=== PATIENT | female | born 1975 | race Caucasian/White ===

== ENCOUNTER 2022-10-31 20:32 | Outpatient (REF) | payer OTHER, SELFPAY ==
[2022-11-06 10:07] LABS: Age Gdln ACOG Testing Note (.); HPV Aptima Negative (Negative); IGP, Aptima HPV, rfx 16/18,45 Note (.)
== END 2022-10-31 20:33 | disposition home or self-care (01) ==
LOC: LAB 20:32
PROVIDERS: Visit Provider Physician Assistant
DX: Z01.419 Encounter for gynecological examination (general) (routine) without abnormal findings (principal)
CPT/HCPCS: 87624; G0145

== ENCOUNTER 2025-03-04 20:22 | Outpatient (REF) | payer BC, SELFPAY ==
--- OUTSIDE RECORDS SUMMARY | 2025-03-04 09:00 | XMS_ITS | Encounter Summary ---
Author Organization [facility] Address [address] [place] [address] Care Team Providers Care Bailer Operators Supervisor Name Role Phone Mj Valles MD Primary Care Provider [phone] Reason for Visit * ReasonCommentsWell Women Visit Encounter Details DateTypeDepartmentCare Team (Latest Contact Info)Bgneauzxzsw33/17/2025 9:00 AM ESTProcedure Visit [facility] [address] [place] [address] Tierra Bull, ENRIQUE [address] [place] [address] Well woman exam with routine gynecological exam; Breast cancer screening by mammogram; Encounter for initial prescription of contraceptive pills Social History Tobacco UseTypesPacks/DayYears UsedDateSmoking Tobacco: Every DayCigarettes Alcohol UseStandard Drinks/WeekCommentsNot Currently0 (1 standard drink = 0.6 oz pure alcohol)occasionalCommentsUnknownSex and Gender InformationValue Date RecordedSex Assigned at BirthNot on fileLegal EozRzxovl65/15/2023 11:47 PM EDTGender IdentityNot on fileSexual OrientationNot on filedocumented as of this encounter Last Filed Vital Signs Vital SignReadingTime TakenCommentsBlood Rhfyjktw080/7003/04/2025 9:05 AM EST Pulse--Temperature--Respiratory Rate--Oxygen Saturation--Inhaled Oxygen Concentration--Yvezzv49.5 kg (159 lb 12.8 oz)03/04/2025 9:05 AM ESTHeight--Body Mass Index25.0308 10:23 AM EDTdocumented in this encounter Progress Notes * Tierra Bull NP - 03/04/2025 9:00 AM EST Reason for Appointment: Patient ID: Teri Oliver is a 50 y.o. female who presents for Well Women Visit Patient presents today for Annual Exam. MEDICATIONS Current Outpatient Medications Medication Instructions Slynd 4 mg, Oral, Daily ALLERGIES No Known Allergies PROBLEMS Active Ambulatory Problems Diagnosis Date Noted No Active Ambulatory Problems Resolved Ambulatory Problems Diagnosis Date Noted No Resolved Ambulatory Problems Past Medical History: Diagnosis Date BMI 23.0-23.9, adult Breast cancer screening by mammogram Well woman exam HISTORY PAST MEDICAL HISTORY SOCIAL HISTORY Past Medical History: Diagnosis Date BMI 23.0-23.9, adult Breast cancer screening by mammogram Well woman exam Social History Tobacco Use Smoking status: Every Day Types: Cigarettes Smokeless tobacco: Not on file Substance Use Topics Alcohol use: Not Currently Comment: occasional Drug use: Never FAMILY HISTORY Family History Problem Relation Name Age of Onset Hypertension Mother Mental illness Mother Diabetes Father Hypertension Father Cancer Father Diabetes Paternal Grandmother SURGICAL HISTORY Past Surgical History: Procedure Laterality Date BOWEL RESECTION large bowel CHOLECYSTECTOMY REVIEW OF SYSTEMS Review of Systems: Review of Systems Constitutional: Negative. HENT: Negative. Eyes: Negative. Respiratory: Negative. Cardiovascular: Negative. Gastrointestinal: Negative. Genitourinary: Negative. Musculoskeletal: Negative. Skin: Negative. Neurological: Negative. All other systems reviewed and are negative. Hematological: Negative. Endocrine: Negative. Allergic/Immunologic: Negative. OBJECTIVE Objective: Physical Exam Constitutional: Appearance: Normal appearance. She is well-developed. Genitourinary: Vulva normal. Breasts: Breasts are soft. Right: Normal. Left: Normal. Cardiovascular: Rate and Rhythm: Normal rate and regular rhythm. Pulmonary: Effort: Pulmonary effort is normal. Breath sounds: Normal breath sounds. Abdominal: General: Bowel sounds are normal. There is no distension. Palpations: Abdomen is soft. Tenderness: There is no abdominal tenderness. There is no guarding or rebound. Musculoskeletal: General: No swelling. Normal range of motion. Right lower leg: No edema. Left lower leg: No edema. Neurological: Mental Status: She is alert and oriented to person, place, and time. Skin: General: Skin is warm and dry. Psychiatric: Mood and Affect: Mood normal. Behavior: Behavior normal. Vitals and nursing note reviewed. Exam conducted with a strategic accounts manager present. Vitals: Estimated body mass index is 25.03 kg/m?? as calculated from the following: Height as of 10/31/22: 5' 7 . Weight as of this encounter: 159 lb 12.8 oz. BP: 108/70 Patient's last menstrual period was 2025. Assessment/Plan ICD-10-CM 1. Well woman exam with routine gynecological exam Z01.419 THIN PREP TIS PAP AND HR HPV DNA 2. Breast cancer screening by mammogram Z12.31 Bilateral screening mammogram Bilateral screening mammogram Assessment/Plan Annual Exam: Patient presents today for an annual exam. Patient states she is doing well and has no complaints. Pap was obtained without difficulty. Orders Placed This Encounter Procedures Bilateral screening mammogram Follow Up: Patient is to return in one year for annual unless needed otherwise. Documented by Tierra Bull NP on behalf of: Tierra Bull NP documented in this encounter Plan of Treatment NameTypePriorityAssociated DiagnosesOrder ScheduleBilateral screening mammogram ImagingRoutine Breast cancer screening by mammogram Expected: 03/04/2025 (Approximate), Expires: 05/05/2026THIN PREP TIS PAP AND HR HPV DNAPathology and CytologyRoutine Well woman exam with routine gynecological exam Ordered: 03/04/2025documented as of this encounter Visit Diagnoses Diagnosis Well woman exam with routine gynecological exam Routine gynecological examination Breast cancer screening by mammogram Encounter for initial prescription of contraceptive pills documented in this encounter Care Teams Team MemberRelationshipSpecialtyStart DateEnd Date Mj Valles MD [address] [place] [address] PCP - GeneralFamily Medicine10/31/22documented as of this encounter
--- OUTSIDE RECORDS SUMMARY | 2025-03-04 20:28 | XMS_ITS | Clinical Summary ---
Author Organization [facility] Address [id number] [address] [place] [address] Care Team Providers Care Rolled Seat Trimmer Name Role Phone Amparo Sauer MD Primary Care Provider Allergies No known active allergies Medications MedicationSigDispense QuantityRefillsLast FilledStart DateEnd DateStatus etonogestreL-ethinyl estradioL (NUVARING) 0.12-0.015 mg/24 hr vaginal ring 3Active Active Problems No known active problems Family History Medical HistoryRelationNameCommentsDiabetesFatherHeart diseaseFatherHypertension FatherLymphomaFatherAnxiety disorderMotherHypertensionMotherRelationNameStatus CommentsFatherAliveMotherAlive Social History Tobacco UseTypesPacks/DayYears UsedDateSmoking Tobacco: FormerCigarettes Smokeless Tobacco: Never Tobacco Cessation:Counseling Given: Not Answered Alcohol UseStandard Drinks/WeekCommentsYes0 (1 standard drink = 0.6 oz pure alcohol)SOCIALLYChildcareAnswerDate LdulegzxBbogljigqBkqbnjq72/11/2019Employment AnswerDate SawayajgMjrnngmvloUxbaexi67/11/2019Hunger ScreeningAnswerDate RecordedWithin the past 12 months we worried whether our food would run out before we got money to buy more.Never True08/20/2024Within the past 12 months the food we bought just didn't last and we didn't have money to get more.Never True08/20/2024CommentsNoSex and Gender InformationValueDate RecordedSex Assigned at BirthNot on fileLegal JpfLqtjln30/04/2015 7:24 PM EDTGender Identity Not on fileSexual OrientationNot on file Last Filed Vital Signs Vital SignReadingTime TakenCommentsBlood Qxdhxujn746/77008/20/2024 8:38 AM EDT Dbzot044708/20/2024 8:38 AM SEGMyulubvfttj98.8 ??C (98.3 ??F)08/05/2024 6:28 AM EDTRespiratory Kqtq269808/05/2024 8:25 AM EDTOxygen Hgamvbvinm194%08/05/2024 8:25 AM EDTInhaled Oxygen Concentration--Gnaqke10.1 kg (152 lb 6.4 oz)08/20/2024 8:38 AM LVTHhmgnf573.2 cm (5' 7 )08/20/2024 8:38 AM EDTBody Mass Index23.8708/20/2024 8:38 AM EDT Plan of Treatment Health MaintenanceDue DateLast DoneCommentsDepression Ftxiifzwi59/29/1989 DTaP,Tdap and Td Vaccines (1 - Tdap)02/15/1996Pap Smear1998COVID-19 Vaccine (2 - season)/Influenza Uskuvcq6411/17/2024dult BMI Xmkukbukz95/06/2024Tobacco Anifzcemq10/06/2024 Ffiltpnlemk62/20/203505/, 08/05/2024, 08/05/2024 Medical Devices Not on file Procedures Procedure NamePriorityDate/TimeAssociated DiagnosisCommentsPROVATION COLONOSCOPY Jomtusl9408/05/2024 6:18 AM EDT from Last 3 Months or Most Recently Relevant to Health Maintenance Results * Colonoscopy Report (08/05/2024 6:18 AM EDT)Specimen (Source)Anatomical Location / LateralityCollection Method / VolumeCollection TimeReceived Time Narrative SYSTEMGENERATED, DOCUMENTATION - 08/05/2024 6:18 AM EDT This order has been auto-finalized for image and report archival in PACs. *For full report details, please reach out to your physician. ??This image is visible to you in MyChart.* Authorizing ProviderResult TypeResult StatusMichael E Grillis DOIMG OR IMG ORDERABLESFinal Result from Last 3 Months or Most Recently Relevant to Health Maintenance Insurance Care Teams Team MemberRelationshipSpecialtyStart DateEnd Amparo Sauer MD [address] [place] [address] PCP - GeneralFamily Medicine07/08/24
--- OUTSIDE RECORDS SUMMARY | 2025-03-04 20:28 | XMS_ITS | Encounter Summary ---
Author Organization [facility] Address [address] [place] [address] Care Team Providers Care Planer Setter Name Role Phone Mj Valles MD Primary Care Provider [phone] Encounter Details DateTypeDepartmentCare Team (Latest Contact Info)Tzeimiltehl78/16/2025Travel Social History Tobacco UseTypesPacks/DayYears UsedDateSmoking Tobacco: Every DayCigarettes Alcohol UseStandard Drinks/WeekCommentsNot Currently0 (1 standard drink = 0.6 oz pure alcohol)occasionalCommentsUnknownSex and Gender InformationValue Date RecordedSex Assigned at BirthNot on fileLegal VdmDfofip88/15/2023 11:47 PM EDTGender IdentityNot on fileSexual OrientationNot on filedocumented as of this encounter Plan of Treatment Not on file documented as of this encounter Visit Diagnoses Not on filedocumented in this encounter Care Teams Team MemberRelationshipSpecialtyStart [place] [address] [place] [address]. [place] [address] PCP - GeneralFamily Medicine10/31/22documented as of this encounter
--- OUTSIDE RECORDS SUMMARY | 2025-03-04 20:28 | XMS_ITS | Encounter Summary ---
Author Organization [facility] Address [address] [facility] [place] [address] Care Team Providers Care Marine Safety Officer Name Role Phone Mj Valles MD Primary Care Provider [phone] Encounter Details DateTypeDepartmentCare Team (Latest Contact Info)Llacmbmjdct53/17/2025amboo flowsheet [facility] [address] [address] [address] Tierra Bull, ENRIQUE [address] [facility] [place] [address] Social History Tobacco UseTypesPacks/DayYears UsedDateSmoking Tobacco: Every DayCigarettes Alcohol UseStandard Drinks/WeekCommentsNot Currently0 (1 standard drink = 0.6 oz pure alcohol)occasionalCommentsUnknownSex and Gender InformationValue Date RecordedSex Assigned at BirthNot on fileLegal TjeHiuioh40/15/2023 11:47 PM EDTGender IdentityNot on fileSexual OrientationNot on filedocumented as of this encounter Plan of Treatment Not on file documented as of this encounter Visit Diagnoses Not on filedocumented in this encounter Care Teams Team MemberRelationshipSpecialtyStart DateEnd Date Mj Valles MD [address] [place] [address] PCP - GeneralFamily Medicine10/31/22documented as of this encounter
--- OUTSIDE RECORDS SUMMARY | 2025-03-04 20:28 | XMS_ITS | Clinical Summary ---
Author Organization [facility] Address [address] [place] [address] Care Team Providers Care Golf Course Architect Name Role Phone Mj Valles MD Primary Care Provider [phone] Allergies No known active allergies Medications MedicationSigDispense QuantityRefillsLast FilledStart DateEnd DateStatus Drospirenone (Slynd) 4 MG tablet Indications:Encounter for initial prescription of contraceptive pillsTake 4 mg by mouth Daily 84 tablet 5006/02/2025ctive Drospirenone (Slynd) 4 MG tablet Indications:Encounter for initial prescription of contraceptive pillsTake 4 mg by mouth Daily 84 tablet Discontinued(Reorder) Encounters DateTypeDepartmentCare EwmjWkpucuadyyq92/17/2025 9:00 AM ESTProcedure Visit [facility] [address] [place] [place] [address] Tierra Bull NP Well woman exam with routine gynecological exam; Breast cancer screening by mammogram; Encounter for initial prescription of contraceptive pills03/04/2025amboo flowsheet [facility] [address] [facility] [place] [address] Tierra Bull NP 03/03/20251337Zdgadu06/12/2025Refill [facility] [address] [place] [address] Santiago Villarreal DO Encounter for initial prescription of contraceptive pills01/27/2025Telephone [facility] [address] [place] [address] Izzy Cordero MA 01/19/2025Telephone [facility] [address] [place] [address] Santiago Villarreal DO from Last 3 Months Family History Medical HistoryRelationNameCommentsCancerFatherDiabetesFatherHypertensionFather HypertensionMotherMental illnessMotherDiabetesPaternal GrandmotherRelationName LodgsjYzkmnwzrQtidyrj1WoghanMglzxyYzonkpzh Grandmother Social History Tobacco UseTypesPacks/DayYears UsedDateSmoking Tobacco: Every DayCigarettes Tobacco Cessation:Ready to Q uit: Not Asked; Counseling Given: Not Answered Alcohol UseStandard Drinks/WeekCommentsNot Currently0 (1 standard drink = 0.6 oz pure alcohol)occasionalCommentsUnknownSex and Gender InformationValue Date RecordedSex Assigned at BirthNot on fileLegal HotCtuiod58/15/2023 11:47 PM EDTGender IdentityNot on fileSexual OrientationNot on file Last Filed Vital Signs Vital SignReadingTime TakenCommentsBlood Xgwfcyqw702/7003/04/2025 9:05 AM EST Pulse--Temperature--Respiratory Rate--Oxygen Saturation--Inhaled Oxygen Concentration--Uaxunp89.5 kg (159 lb 12.8 oz)03/04/2025 9:05 AM TGWFvxfrc792.2 cm (5' 7 )10/31/2022 10:23 AM EDTBody Mass Index25.03010/31/2022 10:23 AM EDT Plan of Treatment Health MaintenanceDue DateLast DoneCommentsCT Udwocqthidoz1977FIT-DNA 1977FIT1977FOBT1977 9431Fafmrhzwkbllu1977Pap Smear1998 Cervical Cancer Zswrjzjog09/29/2007HPV/Kimqod8902/14/2007COVID-19 Vaccine ( season)Influenza Vaccine (#1)2024Mammogram 51, 3941Efisuowjymm51, 08/05/2024, 08/05/2024olorectal Cancer Zhblrwdql97/20/2035Pneumococcal Vaccine: Pediatrics (0 to 5 Years) and At-Risk Patients (6 to 64 Years)Aged OutNo longer eligible based on patient's age to complete this topic Procedures Procedure NamePriorityDate/TimeAssociated DiagnosisCommentsBI MAMMOGRAM SCREENING TOMOSYNTHESIS LEFQJTLFALhhbsix59/24/2024 12:14 PM EDT Encounter for screening mammogram for malignant neoplasm of breast from Last 3 Months or Most Recently Relevant to Health Maintenance Results * Bilateral screening mammogram with tomosynthesis (01/10/2024 12:14 PM EDT) Anatomical RegionLateralityModalityBreastBilateralMammographySpecimen (Source) Anatomical Location / LateralityCollection Method / VolumeCollection Time Received Time01/11/2024 10:58 AM EDT Impressions 01/11/2024 11:06 AM EDT Impression: No specific evidence of malignancy seen in either breast. Breast Density: The breasts are almost entirely fatty BiRads: BIRADS 2 - Benign Recommended follow-up: Routine Screening Mamm ELECTRONICALLY SIGNED BY: Myron Duenas M.D. Narrative 01/11/2024 11:06 AM EDT Examination: BI MAMMOGRAM SCREENING TOMOSYNTHESIS BILATERAL Clinical History: screening Technique: Screening digital mammography study of both breasts was performed with 2-D and 3-D tomosynthesis imaging. Study was compared to the prior exam dated 11/06/2022. Findings: There is no evidence of interval dominant spiculated mass, grouped microcalcifications, or skin thickening which would be suggestive of malignancy. ?? A few adjacent small benign-appearing nodular densities in the upper outer portion of the right breast similar to the prior study. A few benign-appearing calcifications are seen bilaterally. Axillarylymph nodes are noted on the left, partially visualized axillary lymph node suggested on the right. Procedure Note Myron Duenas MD - 01/11/2024 Examination: BI MAMMOGRAM SCREENING TOMOSYNTHESIS BILATERAL Clinical History: screening Technique: Screening digital mammography study of both breasts wasperformed with 2-D and 3-D tomosynthesis imaging. Study was compared tothe prior exam dated 11/06/2022. Findings: There is no evidence of interval dominant spiculated mass,grouped microcalcifications, or skin thickening which would be suggestiveof malignancy. A few adjacent small benign-appearing nodular densities in the upper outer portion of the right breast similar to the prior study. A fewbenign-appearing calcifications are seen bilaterally. Axillary lymph nodesare noted on the left, partially visualized axillary lymph node suggestedon the right. IMPRESSION: Impression: No specific evidence of malignancy seen in either breast. Breast Density: The breasts are almost entirely fatty BiRads: BIRADS 2 - Benign Recommended follow-up: Routine Screening Mamm ELECTRONICALLY SIGNED BY: Myron Duenas M.D. Authorizing ProviderResult TypeResult StatusAmparo Sauer MDIMNallely BI PROCEDURES Final Result from Last 3 Months or Most Recently Relevant to Health Maintenance Insurance Care Teams Team MemberRelationshipSpecialtyStart DateEnd Mj Veliz MD [address] [place] [id number] PCP - GeneralFamily Medicine10/31/22
== END 2025-03-04 20:23 | disposition home or self-care (01) ==
LOC: LAB 20:22
PROVIDERS: Visit Provider Nurse Practitioner Family
DX: Z01.419 Encounter for gynecological examination (general) (routine) without abnormal findings (principal)
CPT/HCPCS: 88175